=== PATIENT | male | born 1960 ===

== ENCOUNTER 2017-04-20 20:13 | Emergency (ER) | payer SELFPAY ==
[2017-04-20 20:25] VITALS: TEMP 97.9; O2SAT 99
--- NOTE | 2017-04-20 20:42 | C.PDOC ---
History Of Present Illness 56 y/o male presents to the ED for evaluation after being referred from clinic for hypertension. Patient states he has a prescription but has not filled it. Patient has not taken medication in 2 days. Otherwise, patient states he is asymptomatic. History obtained via [employer]. VIA TRANS REFERRED FROM CLINIC FOR HTN. PS HAS PRESCRIPTION BUT HASNT FILLED IT. HASNT TAKEN IN 2 DAYS. OTHERWISE ASYMPT. EXAM NEG Time Seen by Provider: 04/20/17 20:29 Chief Complaint (Nursing): High Blood Pressure History Per: Patient History/Exam Limitations: no limitations Onset/Duration Of Symptoms: Days (2) Current Symptoms Are (Timing): Still Present Quality Of Symptoms: Asymptomatic Exacerbating Factor(s): Pos: Recently Missed Doses Of Medication Additional History Per: Patient Past Medical History Reviewed: Historical Data, Nursing Documentation, Vital Signs Vital Signs: Last Vital Signs Temp 97.9 F 04/20/17 20:22 Pulse 61 04/20/17 20:49 Resp 16 04/20/17 20:49 BP 185/99 H 04/20/17 20:49 Pulse Ox 99 04/21/17 03:23 - Medical History PMH: HTN Surgical History: No Surg Hx Family History: States: Unknown Family Hx - Social History Hx Alcohol Use: No Hx Substance Use: No - Immunization History Hx Tetanus Toxoid Vaccination: No Hx Influenza Vaccination: Yes Hx Pneumococcal Vaccination: No Review Of Systems Constitutional: Positive for: Other (hypertension, missed doses of medication ) Physical Exam - Physical Exam Appears: Non-toxic, No Acute Distress Skin: Normal Color, Warm, Dry Head: Atraumatic, Normacephalic Eye(s): bilateral: Normal Inspection Oral Mucosa: Moist Neck: Supple Chest: Symmetrical, No Deformity, No Tenderness Cardiovascular: Rhythm Regular, No Murmur Respiratory: Normal Breath Sounds, No Rales, No Rhonchi, No Wheezing Extremity: Normal ROM, Capillary Refill (less than 2 seconds ) Neurological/Psych: Oriented x3, Normal Speech, Normal Cognition Gait: Steady ED Course And Treatment O2 Sat by Pulse Oximetry: 99 (on RA) Pulse Ox Interpretation: Normal Progress Note: Patient received Lisinoprol PO. On reassessment, patient is resting comfortably, showing no signs of distress, and is stable for dischage. Disposition Counseled Patient/Family Regarding: Diagnosis, Need For Followup - Disposition Referrals: Non [facility] Provider, [Primary Care Provider] - Disposition: HOME/ ROUTINE Disposition Time: 20:41 Condition: IMPROVED Instructions: Hypertension (ED) Forms: [facility] (Arabic) Print Language: ITALIAN - Clinical Impression Clinical Impression: Hypertension, Noncompliance with medication regimen - Scribe Statement The provider has reviewed the documentation as recorded by the Scribe (Zaida Hernandes) Provider Attestation: All medical record entries made by the Scribe were at my direction and personally dictated by me. I have reviewed the chart and agree that the record accurately reflects my personal performance of the history, physical exam, medical decision making, and the department course for this patient. I have also personally directed, reviewed, and agree with the discharge instructions and disposition.
[2017-04-20 20:53] VITALS: BP 185/99; PULSE 61; RESP 16
== END 2017-04-20 20:53 | disposition home or self-care (01) ==
LOC: SUPCPDRO 20:13 → C.ER 20:13
DX: I10 Essential (primary) hypertension (principal); Z91.14 Patient's other noncompliance with medication regimen